=== PATIENT | male | born 1995 | race Caucasian/White ===

== ENCOUNTER 2025-02-13 20:42 | Emergency (ER) | payer OTHER ==
[~2025-02-13] VITALS: Ht 167.6 cm; Wt 77.3 kg
[2025-02-13 21:20] VITALS: BP 130/61; PULSE 90; RESP 16; TEMP 98.1; O2SAT 96
[2025-02-14] MEDS ORDERED: CEPH-558 PO (00:12)
[2025-02-14] MEDS ORDERED: SULF1TAB94 PO (00:12)
[2025-02-14] MEDS: CEPHALEXIN MONOHYDRATE 500 MG CAPSULE PO ONE (00:50)
[2025-02-14] MEDS: SULFAMETHOX/TRIMETH DS 800-160 MG/TABLET PO ONE (00:50)
[2025-02-14] MEDS: BACITRACIN 28 GM OINTMENT TP ONE (00:50)
[2025-02-14] MEDS: PERTUSS(ACELL),DIPH,TET/PF 0.5 ML SYRINGE [ADULT] IM. ONE (00:51)
== END 2025-02-14 00:55 | disposition home or self-care (01) ==
LOC: EMS 20:42
DX: S71.101A Unspecified open wound, right thigh, initial encounter (principal); F11.90 Opioid use, unspecified, uncomplicated; X58.XXXA Exposure to other specified factors, initial encounter; Y93.89 Activity, other specified; Y92.89 Other specified places as the place of occurrence of the external cause; Y99.8 Other external cause status
CPT/HCPCS: 90471; 90715; 99284